=== PATIENT | female | born 2000 | race American Indian/Alaskan Native ===

== ENCOUNTER 2018-11-24 21:20 | Emergency (ER) | payer SELFPAY ==
[2018-11-24 22:19] VITALS: BP 116/73; PULSE 90; RESP 18; TEMP 98.6; O2SAT 98
[2018-11-25 00:30] LABS: BASO % 0.5 % (0.0-2.0); EOS % 0.6 % (0.0-4.0); HEMOGLOBIN 13.7 g/dL (12.0-16.0); LYMPH # 2.5 K/uL (1.0-4.3); LYMPH % 42.1 % (20.0-40.0); MEAN CELL VOLUME 87.4 fl (81.0-99.0); MEAN CORPUSCULAR HEMOGLOBIN 29.2 pg (27.0-31.0); MEAN CORPUSCULAR HGB CONC 33.4 g/dL (33.0-37.0); MEAN PLATELET VOLUME 9.3 fl (7.2-11.7); MONO # 0.6 K/uL (0.0-0.8); MONO % 10.2 % (0.0-10.0); NEUT # 2.8 K/uL (1.8-7.0); NEUT % 46.6 % (50.0-75.0); NRBC % 0.1 % (0.0-0.0); RBC 4.7 Mil/uL (3.80-5.20); RED CELL DISTRIBUTION WIDTH 13.4 % (11.5-14.5)
[2018-11-25 00:42] LABS: ALB/GLOB RATIO 1.2 (1.0-2.1); ALT/SGPT 24 U/L (9-52); AST/SGOT 25 U/L (14-36); BLOOD UREA NITROGEN 11 mg/dl (7-17); CALCIUM 9.1 mg/dL (8.4-10.2); GFR NON-AFRICAN AMERICAN > 60
--- NOTE | 2018-11-25 01:02 | ED PDOC ---
HPI: Abdomen Time Seen by Provider: 11/24/18 22:25 Chief Complaint (Nursing): Abdominal Pain Chief Complaint (Provider): Abdominal Pain History Per: Patient History/Exam Limitations: no limitations Onset/Duration Of Symptoms: Hrs (1-2) Location Of Pain/Discomfort: LLQ Quality Of Discomfort: Pressure, "Pain" Additional Complaint(s): 18 year old female with no significant medical history presents to the ED for evaluation of left sided abdominal pain, onset 1-2 hours prior to arrival. Patient reports she was laying in bed when she developed a pulsing sensation in her left side. Pain is better now, however, she still reports mild pressure. She states that she has had some mild vaginal bleeding, but that her it is likely due to her approaching period. Denies fever and urinary symptoms. PMD: Dr. Peter Islas Abnormal Vaginal Bleeding: No Past Medical History Reviewed: Historical Data, Nursing Documentation, Vital Signs Vital Signs: Last Vital Signs Temp 98.6 F 11/24/18 22:17 Pulse 90 11/24/18 22:17 Resp 18 11/24/18 22:17 BP 116/73 11/24/18 22:17 Pulse Ox 98 11/24/18 22:17 - Medical History PMH: No Chronic Diseases - Surgical History Surgical History: No Surg Hx - Family History Family History: States: Unknown Family Hx - Social History Current smoker - smoking cessation education provided: No Alcohol: None Drugs: Denies - Allergies Allergies/Adverse Reactions: Allergies Allergy/AdvReac Type Severity Reaction Status Date / Time Unobtainable Allergy Verified 11/24/18 22:17 Review of Systems ROS Statement: Except As Marked, All Systems Reviewed And Found Negative Constitutional: Negative for: Fever Gastrointestinal: Positive for: Abdominal Pain Genitourinary Female: Negative for: Dysuria, Frequency, Incontinence, Hematuria Physical Exam - Reviewed Nursing Documentation Reviewed: Yes Vital Signs Reviewed: Yes - Physical Exam Appears: Positive for: No Acute Distress Head Exam: Positive for: ATRAUMATIC, NORMAL INSPECTION, NORMOCEPHALIC Skin: Positive for: Normal Color, Warm, Dry Eye Exam: Positive for: EOMI, Normal appearance, PERRL Neck: Positive for: Normal, Painless ROM, Supple Cardiovascular/Chest: Positive for: Regular Rate, Rhythm. Negative for: Murmur Respiratory: Positive for: Normal Breath Sounds. Negative for: Respiratory Distress Gastrointestinal/Abdominal: Positive for: Normal Exam, Bowel Sounds, Soft. Negative for: Tenderness, Mass, Guarding Extremity: Positive for: Normal ROM (upper and lower extremities). Negative for: Deformity Neurological/Psych: Positive for: Awake, Alert, Normal Tone, Oriented. Negative for: Motor/Sensory Deficits - Laboratory Results Result Diagrams: 11/25/18 00:05 11/25/18 00:05 - ECG O2 Sat by Pulse Oximetry: 98 (RA) Pulse Ox Interpretation: Normal Medical Decision Making Medical Decision Makin:46 Impression: abdominal pain/pressure Initial Plan: --CMP --CBC --Troponin --CXR workup here was negative pt has been asymptomatic throughout ER stay with a normal exam pt feels improved, pt tolerated po stable for dc and outpt follow up with pmd. ---- Scribe Attestation: Documented by Claudia Dawson acting as a scribe for Leidy Ayon MD. Provider Scribe Attestation: All medical record entries made by the Scribe were at my direction and personally dictated by me. I have reviewed the chart and agree that the record accurately reflects my personal performance of the history, physical exam, medical decision making, and the department course for this patient. I have also personally directed, reviewed, and agree with the discharge instructions and disposition. Disposition - Clinical Impression Clinical Impression: Abdominal discomfort - Patient ED Disposition Is Patient to be Admitted: No Counseled Patient/Family Regarding: Studies Performed, Diagnosis, Need For Followup - Disposition Disposition: Routine/Home Disposition Time: 02:40 Condition: IMPROVED Additional Instructions: follow up with dr islas in 1-2 days return to the ED with any worsening or concerning symptoms Instructions: Stomach Ache and Stomach Upset Forms: [employer] (Serbian)
--- NOTE | 2018-11-25 09:02 | CARD ---
APPROVED REPORT Date of service: 11/25/2018 EKG Measurement Heart [id number] [id number] <Conclusion> Normal sinus rhythm Normal ECG
--- NOTE | 2018-11-25 12:59 | RAD ---
Date of service: 11/25/2018 HISTORY: l rib pain COMPARISON: No prior. TECHNIQUE: Chest PA and lateral FINDINGS: LUNGS: No active pulmonary disease. PLEURA: No significant pleural effusion identified. No pneumothorax apparent. CARDIOVASCULAR: No aortic atherosclerotic calcification present. Normal cardiac size. No pulmonary vascular congestion. OSSEOUS STRUCTURES: No significant abnormalities. VISUALIZED UPPER ABDOMEN: Normal. OTHER FINDINGS: None. IMPRESSION: No active disease. Concordant results with the preliminary interpretation rendered by the emergency department physician procedure.
== END 2018-11-25 03:50 | disposition home or self-care (01) ==
LOC: H.ER 21:20
DX: R10.32 Left lower quadrant pain (principal)